=== PATIENT | female | born 1960 | race Caucasian/White ===

== ENCOUNTER 2019-02-28 04:38 | Inpatient (IN) | payer MEDICAID ==
[2019-02-28] VITALS (13 sets, daily range): BP systolic 122–160; BP diastolic 69–126; PULSE 67–99; TEMP 98.1–98.7
[~2019-02-28] VITALS: Ht 160 cm; Wt 63.4 kg
[2019-02-28] MEDS ORDERED: LEVOXYL0.075 MG PO (05:14)
[2019-02-28] MEDS ORDERED: LYRICA 50MG CAP50 MG PO (05:14)
[2019-02-28] MEDS ORDERED: VITAMIN D 1001000 IU PO (05:14)
[2019-02-28] MEDS ORDERED: PHENERGAN 25 TA25 MG PO (05:15)
[2019-02-28] MEDS ORDERED: NORCO 325 MG-7.1 TAB PO (05:15)
[2019-02-28] MEDS ORDERED: PREDNISONE10 MG PO (05:15)
[2019-02-28] MEDS ORDERED: XANAX .25M0.25 MG/TA PO (05:16)
[2019-02-28] MEDS ORDERED: LASIX 40MG TABL40 MG PO (05:16)
[2019-02-28] MEDS ORDERED: SOMA 350MG350 MG/TAB PO (05:16)
[2019-02-28] MEDS ORDERED: DITROPAN XL 5MG5 M1 PO (05:16)
[2019-02-28] MEDS ORDERED: ZANTAC 150MG T150 MG PO (05:17)
[2019-02-28] MEDS ORDERED: ATARAX 25MG25 MG/TAB PO (05:17)
[2019-02-28 05:20] LABS: BASO # 0.1 (0.0-0.2); BASO % 0.8 % (0.0-2.0); EOS % 0.5 % (0-4.0); GRAN # 4.8 (1.4-6.5); GRAN % 54.9 % (42.2-75.2); HEMATOCRIT 37.8 % (37.0-47.0); LYMPH # 2.9 (1.2-3.4); LYMPH % 33.1 % (20.0-51.0); MEAN CELL VOLUME 88 fl (80.0-100.0); MEAN CORPUSCULAR HEMOGLOBIN 30 pg (27.0-31.0); MEAN CORPUSCULAR HGB CONC 34 g/dl (33.0-37.0); MEAN PLATELET VOLUME 8.3 fl (7.4-10.4); MONO # 0.9 (0.1-0.6); MONO % 9.9 % (1.7-9.3); PLATELET COUNT 326 K/mm3 (130-400); RED BLOOD COUNT 4.31 M/mm3 (4.10-5.30); REDCELL DISTRIBUTION WIDTH-CV 12.5 % (11.5-14.5)
[2019-02-28 05:33] LABS: ALBUMIN 4.4 gm/dL (3.5-5.0); BILIRUBIN,TOTAL 0.8 mg/dL (0.0-1.0); C-REACTIVE PROTEIN 1.2 mg/dL (0.0-0.9); CALCIUM 9.7 mg/dL (8.4-10.2); CREATININE, serum 0.79 (0.52-1.25); POTASSIUM 3.3 mmol/L (3.4-5.0); TOTAL PROTEIN 7.5 gm/dL (6.4-8.2)
[2019-02-28 06:35] LABS: COLLECTION METHOD CLEAN CATCH
[2019-02-28 06:40] LABS: PH 8 (5-8); SQUAMOUS EPITHELIAL None Seen /hpf; URINE APPEARANCE Clear; URINE BACTERIA None Seen /hpf; URINE BILIRUBIN Negative (NEGATIVE); URINE BLOOD 1+ (NEGATIVE); URINE COLOR Straw; URINE GLUCOSE Negative (NEGATIVE); URINE KETONE Negative (NEGATIVE); URINE LEUKOCYTE ESTERASE Trace (NEGATIVE); URINE NITRATE Negative (NEGATIVE); URINE PROTEIN(semi-quant) Negative (NEGATIVE); URINE RBC 0-2 /hpf; URINE UROBILINOGEN Negative (NEGATIVE)
[2019-02-28] MEDS ORDERED: PROTONIX20 MG PO (06:45)
--- NOTE | 2019-02-28 09:30 | NUR ---
Arrived to the room at this time. The patient has dilated pupils 5mm bilaterally, symetrical and voiced she is having visual changes where the room is moving back and forth. No hallucinations at this time. The patient complains of a sore throat from breathing in brake fluid and uncleaned roopa litter. The patient reports living next to a car repair garage with minimal ventilation and below a home or three cats where the litter was uncleaned for long periods at a time. The patient stated she had been taping the vents closed to aid in the fumes entering her apartment. The inital assessment was completed with the patient. Nausea present, but the patient had just recieved nausea meds in ED-phenergan and zofran. This nurse to reassess needs for additional nausea medication.
[2019-02-28 10:17] LABS: CREATININE, serum 0.7 (0.52-1.25); POTASSIUM 3.6 mmol/L (3.4-5.0)
--- NOTE | 2019-02-28 10:59 | NUR ---
Plan: To return home with son Lon unless otherwise specified by DR. Assess: SW met with patient in the room. Patient reports that she is not walking well with vision issues, and labored breating. Client reports ongoing nausea. Laurienet reports that she does not use any DME's in home and has not needed them, Patient indicated that her PCP is Dr. Nelson Drummond at [facility]. Patient reports that she use [facility] for RX and denies any problems. Patient verbalizes Jeff Forrest is her DPOA. Patient reports that she does not drive and her son transports. Patient reports auditory concerns and states, "I am flying the pegasus." Spoke with nurse about concerns. Awaiting other screening results. Action: SW will continue to follow care for any needs to arise.
[2019-02-28 15:37] LABS: ARTERIAL BLD GAS O2 SATURATION 97.7 % (92-100); ARTERIAL BLOOD GAS BASE EXCESS -1.2 (-2-2); ARTERIAL BLOOD GAS PCO2 32.6 mmHg (35-45); ARTERIAL BLOOD GAS PO2 110.8 mmHg (80-100); ARTERIAL BLOOD GAS pH 7.45 (7.35-7.45)
--- NOTE | 2019-02-28 18:47 | NUR ---
No further nausea throughout the afternoon. Currently, resting in bed at this time. The call light is in place. Report given to DALI Torres to resume care.
--- NOTE | 2019-02-28 21:11 | NUR ---
Sitting at bedside. Assessment complete. Lungs clear. Heart sounds normal. Bowels active x4. Pulses strong throughout. No edema noted. Port to right chest without complications. Erythema present to medial right chest. Rating pain 4/10, headache. Denies needs at this time. Call light in reach.
--- NOTE | 2019-02-28 22:10 | NUR ---
Reports nausea after eating jello. Provided with PRN zofran.
--- NOTE | 2019-02-28 23:37 | NUR ---
Resting in bed. Denies needs. Call light in reach.
[2019-03-01 04:19] VITALS: BP 138/73; PULSE 69; TEMP 97.6
--- NOTE | 2019-03-01 04:27 | NUR ---
Sitting at bedside. Able to self bathe with warm shower wipes. Gown changed. Denies other needs. Call light in reach.
[2019-03-01 06:31] LABS: BASO # 0.1 (0.0-0.2); BASO % 0.7 % (0.0-2.0); EOS # 0.1 (0.0-0.7); EOS % 1.5 % (0-4.0); GRAN # 4.2 (1.4-6.5); GRAN % 60.5 % (42.2-75.2); HEMOGLOBIN 11.9 g/dl (12.5-16.0); LYMPH # 1.8 (1.2-3.4); LYMPH % 25.6 % (20.0-51.0); MEAN CELL VOLUME 92 fl (80.0-100.0); MEAN CORPUSCULAR HEMOGLOBIN 30 pg (27.0-31.0); MEAN CORPUSCULAR HGB CONC 33 g/dl (33.0-37.0); MEAN PLATELET VOLUME 8.6 fl (7.4-10.4); MONO # 0.7 (0.1-0.6); MONO % 10.8 % (1.7-9.3); PLATELET COUNT 297 K/mm3 (130-400); RED BLOOD COUNT 3.96 M/mm3 (4.10-5.30); REDCELL DISTRIBUTION WIDTH-CV 12.5 % (11.5-14.5)
[2019-03-01 06:39] LABS: CALCIUM 8.4 mg/dL (8.4-10.2); CREATININE, serum 0.78 (0.52-1.25); POTASSIUM 3.4 mmol/L (3.4-5.0)
[2019-03-01 06:57] LABS: HEMATOCRIT 36.4 % (37.0-47.0)
--- NOTE | 2019-03-01 07:00 | NUR ---
Patient required x1 dose of zofran throughout night. Tolerating diet well. Uneventful night. Report given to DALI Irwin
[2019-03-01 08:10] VITALS: BP 122/56; PULSE 70; TEMP 98.3
--- NOTE | 2019-03-01 10:30 | NUR ---
Pt sitting in bed C/O nausea and reporting bloody diarrhea. Pt flushed the diarrhea and nurse was not able ot view it. Zofran given for nausea. C/O headache 2/10 on pain scale. Requesting coffee to help the headache. Completed morning assessment. Breathing even and unlabored. Pt is oriented to time and place. Denies any shortness of breath or chest pain. Will follow up with Dr. Pulliam on diarrhea. Call light in reach.
--- NOTE | 2019-03-01 10:51 | NUR ---
Initial visit; Patient was weeping and receptive to spiritual care. Diana requested prayer and conversation regarding contacting a family member whom she hadn't spoken for a long time. Poultry Pathologist urged her to call if her heart told her to do so.
[2019-03-01 12:46] VITALS: BP 136/64; PULSE 74; TEMP 98.5
--- NOTE | 2019-03-01 15:30 | NUR ---
Pt called to report she may have pulled her port out. Discontinued fluids, inspected site, some edema noted at insertion site. Could not pull back blood, when flushed pt c/o pain and burning. Called Marlen MCNALLY to help.
--- NOTE | 2019-03-01 15:39 | NUR ---
Called to pt's room as she reports that she may have pulled out her port needle. No blood return noted and pt reports some stinging with flush. This line was discontinued. New 1" yoder needle accessed placed per protocal. Initially no blood return was recieved but with random repositioning, I did get sluggish blood return. I question that some swelling is noted around the port site. Pt does report taste of saline with the flushes. I spoke with Dr Pulliam about this and recommended a patency check of this port. Orders were recieved and this was discussed with the patient and her nurse.
[2019-03-01 16:29] VITALS: BP 149/60; PULSE 81; TEMP 98.1
--- NOTE | 2019-03-01 17:20 | NUR ---
Due to pt port a cath not having good blood return, inserted a 22G to LF. Small bruising formed around but no swelling or redness noted.
--- NOTE | 2019-03-01 18:23 | NUR ---
Pt has miralax with gatorade in room. Taught pt to drink one glass every 10-15 min.
--- NOTE | 2019-03-01 18:39 | NUR ---
Pt c/o of nausea, administered PRN zofran.
--- NOTE | 2019-03-01 19:01 | NUR ---
Hand off report given to Meghann Muro. Pt sitting in bed, drank all of her gatorade prep. Call light in reach.
[2019-03-01 20:00] VITALS: BP 159/71; PULSE 80; TEMP 99
--- NOTE | 2019-03-01 20:20 | NUR ---
PT RESTING IN BED A+OX4. REPORTS SOME IN UPPER ABD BUT TOLERABLE. PORTACATH DOES NOT HAVE BLOOD RETURN. IV FLUSHES WELL, NO REDNESS, NO SWELLING. TELE ON. PT WALK IS STEADY, NO DIZZINESS REPORTED. PT FINISHED TONIGHT'S BOWEL PREP. NO NEEDS AT THIS TIME. CALL LIGHT IN REACH
[2019-03-01 23:23] VITALS: BP 148/77; PULSE 78; TEMP 98.9
--- NOTE | 2019-03-02 00:45 | NUR ---
REPORTED PAIN IN THE BACK AND UPPER ABD- HEAT PACK GIVEN. NUERO CHECK UNCHANGED.
[2019-03-02 03:18] VITALS: BP 155/63; PULSE 78; TEMP 98.6
--- NOTE | 2019-03-02 04:02 | NUR ---
REPORTS UPPER GASTRIC PAIN. AND ABD- "CRAMPING TWITCH" UNABLE TO GIVEN NMBER ON PAIN SCALE. PT REPORTS THE PREDNISONE "MAKES ME FEEL SO WEIRD, MY BODY JUST CANT DO IT". NUERO CHECKS UNCHANGED, AND INSIGNIFICANT. PT CALLS WHEN NEEDING TO GO TP THE BR. NO NEEDS AT THIS TIME, CALL LIGHT IN NREACH
--- NOTE | 2019-03-02 05:03 | NUR ---
pt had an uneventful night. reported upper gastric pain - stating "this prednisone makes my body go crazy" abd pain reported as well. pt unable to give a number on pain scale. heating pack given for pain. bowel prep complete. neuro checks unchanges and insignificant. no soa. on room air. no needs at this time. call light in reach
[2019-03-02 06:06] LABS: HEMATOCRIT 38.5 % (37.0-47.0); HEMOGLOBIN 12.7 g/dl (12.5-16.0); MEAN CELL VOLUME 92 fl (80.0-100.0); MEAN CORPUSCULAR HEMOGLOBIN 30 pg (27.0-31.0); MEAN CORPUSCULAR HGB CONC 33 g/dl (33.0-37.0); MEAN PLATELET VOLUME 8.7 fl (7.4-10.4); PLATELET COUNT 335 K/mm3 (130-400); RED BLOOD COUNT 4.18 M/mm3 (4.10-5.30); REDCELL DISTRIBUTION WIDTH-CV 12.7 % (11.5-14.5)
[2019-03-02 06:16] LABS: CALCIUM 9.1 mg/dL (8.4-10.2); CREATININE, serum 0.65 (0.52-1.25); POTASSIUM 3.9 mmol/L (3.4-5.0)
--- NOTE | 2019-03-02 07:17 | NUR ---
REPORT GIVEN TO DALI GUTIERREZ. PT SLEEPING
--- NOTE | 2019-03-02 08:45 | NUR ---
Assessment complete. Pt sitting up on side of bed, A&O x 4. Breath sounds CTAB. BS active x 4. Pt reports slight discomfort to abd, cramping, manageable at this time. IVF's infusing to left forearm site without s/s of complications. PAC to right chest accessed, dsg CDI, awaiting test for placement. POC reviewed with pt. No further needs reported. Call light in reach.
[2019-03-02 09:07] LABS: NEUTROPHILS 100 % (42.0-75.2); PLATELET ESTIMATE NORMAL (NORMAL)
--- NOTE | 2019-03-02 09:24 | NUR ---
Pt to radiology for testing via WC.
--- NOTE | 2019-03-02 09:50 | NUR ---
Pt back to room from radiology following testing, report received from radiologist that PAC is working. IVF's restarted to PAC per orders. New gown provided to pt and POC reviewd. Call light in reach.
--- NOTE | 2019-03-02 11:07 | NUR ---
Pt to GI endo for procedures via cart.
[2019-03-02 12:20] VITALS: BP 158/70; PULSE 74; TEMP 98.8
[2019-03-02 15:44] VITALS: BP 181/65; PULSE 78; TEMP 98.7
--- NOTE | 2019-03-02 16:00 | NUR ---
Pt's BP elevated d/t pt to bathroom and back right before checking and pt anxiously talking while checking. Will reassess.
--- NOTE | 2019-03-02 17:25 | NUR ---
Pt ambulating in room with steady gait, reports still having frequent loose stools, requests to shower soon. IVF's disconnected at this time and aide notified.
[2019-03-02 17:51] VITALS: BP 137/65
--- NOTE | 2019-03-02 19:24 | NUR ---
Assessment and notes reviewed and agreed by this nurse.
[2019-03-02 20:26] VITALS: BP 141/61; PULSE 72; TEMP 98.9
--- NOTE | 2019-03-02 20:58 | NUR ---
Sitting at bedside. Assessment complete. Lungs clear. Heart sounds normal. Bowels hyperactive x4. Pulses present throughout. No edema noted at this time. Patient reports nausea. Provided with PRN zofran. Also reporting 5/10 ABD, right chest and back pain. States "I feel super bloated." No PRN pain medication on file. Patient would like to take schedule lyrica and reassess need for pain medication at a later time. Denies other needs. Call light in reach.
[2019-03-03] VITALS (7 sets, daily range): BP systolic 138–163; BP diastolic 57–67; PULSE 63–79; TEMP 98.5–99.6
--- NOTE | 2019-03-03 00:05 | NUR ---
Sitting at bedside. Medhat needs. Call light in reach.
--- NOTE | 2019-03-03 01:44 | NUR ---
Patient reports epigastric pain and burning. JARRED Foster added GI cocktail.
--- NOTE | 2019-03-03 03:49 | NUR ---
Resting in bed. Denies needs. Reports GI cocktail improved discomfort. Call light in reach.
--- NOTE | 2019-03-03 06:28 | NUR ---
Patient reported epigastric discomfort throughout night. Provided with GI cocktail. Patient reports this AM, no more symptoms since GI cocktail given. Otherwise uneventful night. Denies needs this AM.
--- NOTE | 2019-03-03 07:28 | NUR ---
Report given to DALI Desouza
--- NOTE | 2019-03-03 07:43 | NUR ---
Sitting up in bed this morning. The patient's PAC is difficult to draw for lab and IV stick necessary for AM labs. No pain or needs reported at this time. The call light is in place.
[2019-03-03 08:08] LABS: BASO # 0.1 (0.0-0.2); BASO % 0.6 % (0.0-2.0); EOS # 0.1 (0.0-0.7); EOS % 0.6 % (0-4.0); GRAN # 4.3 (1.4-6.5); GRAN % 52.6 % (42.2-75.2); HEMOGLOBIN 11.6 g/dl (12.5-16.0); LYMPH % 36.7 % (20.0-51.0); MEAN CELL VOLUME 92 fl (80.0-100.0); MEAN CORPUSCULAR HEMOGLOBIN 31 pg (27.0-31.0); MEAN CORPUSCULAR HGB CONC 33 g/dl (33.0-37.0); MEAN PLATELET VOLUME 8.7 fl (7.4-10.4); MONO # 0.7 (0.1-0.6); MONO % 8.6 % (1.7-9.3); PLATELET COUNT 310 K/mm3 (130-400); REDCELL DISTRIBUTION WIDTH-CV 12.7 % (11.5-14.5)
[2019-03-03 08:19] LABS: CALCIUM 8.6 mg/dL (8.4-10.2); CREATININE, serum 0.75 (0.52-1.25); HEMATOCRIT 34.9 % (37.0-47.0); POTASSIUM 3.6 mmol/L (3.4-5.0)
--- NOTE | 2019-03-03 11:04 | NUR ---
Pt assessment complete. States she has the usual generalized pain. Port in right upper chest with NS infusing at 75mL/hr. States she been feeling a little nausea. GI cocktail given. Up to shower, Port site covered with plastic prior to shower. Continues to be in contact precautions for positive c-diff. Will continue to monitor.
--- NOTE | 2019-03-03 16:00 | NUR ---
The patient was inquiring about community resources. SW met with the patient to provide a packet of resources. There are no additional needs at this time.
--- NOTE | 2019-03-03 19:18 | NUR ---
Pt sitting upright in bed. Zofran ODT 4mg given for c/o feeling nauseated. Report given to oncoming RN. Voices no further c/o. Cont. on contact isolation. States she visited with SS.
--- NOTE | 2019-03-03 21:25 | NUR ---
Sitting at bedside. Assessment complete. Lungs clear. Heart sounds normal. Bowels active x4. Pulses present throughout. No edema noted. Port to right chest without complications. Erythema present medial right chest. Patient reports stomach pain 5/10. Offered GI cocktail. Patient refused. States "I will hold off on everything and see how I feel." Denies other needs at thsi time. Call light in reach.
--- NOTE | 2019-03-04 00:57 | NUR ---
Reports gastric discomfort and headache 01/26. Request GI cocktail at this time. Provided. Denies other needs. Call light in reach.
[2019-03-04 03:53] VITALS: BP 148/65; PULSE 71; TEMP 98.2
--- NOTE | 2019-03-04 04:08 | NUR ---
Patient reports 5/10 headache and nausea. Obtained order from [facility] for PRN tylenol. Provided patient with tylenol and zofran at this time. Denies other needs. Reports x5 episodes of loose stools throughout night.
[2019-03-04 06:14] LABS: BASO # 0.1 (0.0-0.2); BASO % 0.7 % (0.0-2.0); EOS # 0.1 (0.0-0.7); EOS % 0.7 % (0-4.0); GRAN # 4.4 (1.4-6.5); GRAN % 58.7 % (42.2-75.2); HEMOGLOBIN 10.8 g/dl (12.5-16.0); LYMPH # 2.3 (1.2-3.4); LYMPH % 30.3 % (20.0-51.0); MEAN CELL VOLUME 91 fl (80.0-100.0); MEAN CORPUSCULAR HEMOGLOBIN 30 pg (27.0-31.0); MEAN CORPUSCULAR HGB CONC 33 g/dl (33.0-37.0); MEAN PLATELET VOLUME 8.8 fl (7.4-10.4); MONO # 0.7 (0.1-0.6); MONO % 8.9 % (1.7-9.3); PLATELET COUNT 279 K/mm3 (130-400); REDCELL DISTRIBUTION WIDTH-CV 12.7 % (11.5-14.5)
[2019-03-04 06:20] LABS: HEMATOCRIT 32.6 % (37.0-47.0)
[2019-03-04 06:29] LABS: CALCIUM 8.5 mg/dL (8.4-10.2); CREATININE, serum 0.63 (0.52-1.25); POTASSIUM 3.5 mmol/L (3.4-5.0)
--- NOTE | 2019-03-04 06:39 | NUR ---
Report given to DALI Desouza. Patient reports x5 stools throughout night. Reported nausea and headache. Provided with PRN medications as ordered. Otherwise uneventful. Call light in reach. Up int restroom this AM
--- NOTE | 2019-03-04 06:43 | NUR ---
This patient is up to the bathroom at this time. The patient reported multiple loose BMs throughout the night. The patient is performing good hand hygiene, soap and water, with education. No other needs at this time. The call light is in place.
[2019-03-04] MEDS ORDERED: PROTONIX 40MG T40 MG PO (10:58)
[2019-03-04] MEDS ORDERED: VANCOCIN H125 MG/CAP PO (11:00)
[2019-03-04 13:22] VITALS: BP 148/75; PULSE 92; TEMP 98.3
--- NOTE | 2019-03-04 14:17 | NUR ---
Discharge education completed with this patient. All questions answered per this nurse. The central line was deaccessed with 5cc heparin. The son is here to last picker the patient to live/stay with him.
== END 2019-03-04 16:27 | disposition home or self-care (01) | DRG 391 ==
LOC: COL.ER 04:38 → MEDICAL 06:38
PROVIDERS: Emergency Medicine; Hospitalist; Internal Medicine Gastroenterology; Physician Assistant; ADMIT Family Medicine
PROC: 0DBP8ZZ Excision of Rectum, Via Natural or Artificial Opening Endoscopic (ICD-10-PCS; principal; 2019-03-02 12:00)
PROC: 0DJ08ZZ Inspection of Upper Intestinal Tract, Via Natural or Artificial Opening Endoscopic (ICD-10-PCS; 2019-03-02 12:00)
DX: K44.9 Diaphragmatic hernia without obstruction or gangrene (principal); K57.91 Diverticulosis of intestine, part unspecified, without perforation or abscess with bleeding; E87.1 Hypo-osmolality and hyponatremia; A04.72 Enterocolitis due to Clostridium difficile, not specified as recurrent; K56.699 Other intestinal obstruction unspecified as to partial versus complete obstruction; K42.9 Umbilical hernia without obstruction or gangrene; F41.9 Anxiety disorder, unspecified; K21.9 Gastro-esophageal reflux disease without esophagitis; E87.8 Other disorders of electrolyte and fluid balance, not elsewhere classified; E87.6 Hypokalemia; D12.8 Benign neoplasm of rectum; N32.81 Overactive bladder; R31.9 Hematuria, unspecified; M34.9 Systemic sclerosis, unspecified; E89.0 Postprocedural hypothyroidism; R78.89 Finding of other specified substances, not normally found in blood; Y92.009 Unspecified place in unspecified non-institutional (private) residence as the place of occurrence of the external cause; T44.3X1A Poisoning by other parasympatholytics [anticholinergics and antimuscarinics] and spasmolytics, accidental (unintentional), initial encounter; Z90.710 Acquired absence of both cervix and uterus; Z87.01 Personal history of pneumonia (recurrent); Z79.52 Long term (current) use of systemic steroids; Z87.891 Personal history of nicotine dependence; Z88.1 Allergy status to other antibiotic agents; Z88.2 Allergy status to sulfonamides; Z88.8 Allergy status to other drugs, medicaments and biological substances
CPT/HCPCS: 99232-AI; 99239; A9500; C9113; G0378; J1650; J2060; J2405; J2704; J2785; J7030; J7512; Q9967